=== PATIENT | female | born 1995 | race Caucasian/White ===

== ENCOUNTER 2017-08-17 15:25 | Emergency (ER) | payer BC ==
[~2017-08-17] VITALS: Ht 162.6 cm; Wt 114.7 kg
[2017-08-17 15:29] VITALS: TEMP 36.5; Ht 162.6 cm; Wt 114.7 kg
[2017-08-17] MEDS ORDERED: AZITTAB PO (15:40)
[2017-08-17] MEDS ORDERED: LIDOCAINE 4% W/AFRIN NASAL SOLN 4ML EXT STA (15:52)
[2017-08-17] MEDS ORDERED: MUPIROCIN 2% OINT 22 GM TUBE EXT STA (15:52)
--- NOTE | 2017-08-17 16:06 | EMERGENCY ROOM VISIT NOTE ---
History First contact with patient: 15:36 Chief Complaint: NOSE BLEED (MINOR) Stated Complaint: NOSEBLEED History of Present Illness The patient is a 22 year old female who presents to the Emergency Room with complaints of nosebleeds for the last 2 days. The patient reports being sick with a cold. She has had significant congestion. She also reports having a fever as high as 101F on Monday. She was seen at [facility]. She was started on a Z-Salvador. Her fever has dissipated. She also reports a mild sore throat. She is able to swallow, and is tolerating a diet. The patient notes bleeding from the left naris intermittently over the last 2 days. She denies any history of frequent nosebleeds. She does note that her room seems to be significantly hot and dry. She has a lizard as a pet. She needs to keep the environment hot and dry for the lizard. The patient was seen in [facility] today. Silver nitrate was applied to the left naris. She has not had any bleeding since. Review of Systems 6 system review negative. Please see pertinent positives in the history of present illness section. Past Medical/Surgical History Medical Problems: (1) Bronchitis Family History No reported family medical history Social History Smoking Status: Never Smoker Marital Status: single Housing Status: lives with friends Occupation Status: student Current/Historical Medications Scheduled Azithromycin (Zithromax Z-Salvador), 1 PKT PO UD Physical Exam Vital Signs Date Time Temp Pulse Resp B/P (MAP) Pulse Ox O2 Delivery O2 Flow Rate FiO2 17 15:29 36.5 83 20 149/82 95 Room Air Physical Exam VITALS: Vitals are noted on the nurse's note and reviewed by myself. Vital signs stable. GENERAL: 22-year-old female, in no acute distress, nondiaphoretic, well- developed well-nourished. SKIN: The skin was without rashes, erythema, edema, or bruising. HEAD: Normocephalic atraumatic. EYES: Conjunctivae without injection, sclerae without icterus. Extraocular movements intact. NOSE: Turbinates are inflamed bilaterally. There are 2 small, prominent vessels noted in the right anterior septum. There is an area of superficial , thermal burn consistent with silver nitrate noted to the left anterior septum. No prominent vessels noted. No active bleeding. MOUTH: Mucous membranes moist. Tonsils are not significantly enlarged. Pharynx without erythema or exudate. Uvula midline. Airway patent. Tongue does not deviate. NECK: Supple without nuchal rigidity. Lymphadenopathy noted in the posterior cervical chain bilaterally. Cervical spine is nontender. No JVD. HEART: Regular rate and rhythm without murmurs gallops or rubs. LUNGS: Clear to auscultation bilaterally without wheezes, rales or rhonchi. No accessory muscle use. MUSCULOSKELETAL: No muscle atrophy, erythema, or edema noted. Strength 5/5 throughout. NEURO: Patient was alert and oriented to person place and time. Normal sensation to touch. No focal neurological deficits. Medical Decision & Procedures ED Course The patient was seen and examined She was given Bactroban and Afrin to go Discharge instructions were reviewed, and she was discharged in good condition Medical Decision Differential diagnosis: Sinusitis, epistaxis, hypertension, bronchitis, strep pharyngitis This patient is a 22-year-old female that presents to the emergency department concerned about recurrent nosebleeds for the last few days. Patient is currently being treated for an upper respiratory tract infection. Her symptoms included significant congestion and fever. She has been taking a Z-Salvador with good relief.. She is no longer febrile. The patient was seen at [facility] today where silver nitrate was applied to the left turbinate. She came here for a second opinion. On exam, she does not have any active bleeding. She does have prominent vessels particularly in the right anterior septum. There is an eschar present in the left anterior septum consistent with silver nitrate application. She does not have any active bleeding. The patient was cautioned to not blow her nose and not to disturb the area for at least 24 hours. She will start Bactroban ointment twice daily tomorrow. She was also instructed to apply Afrin and a nasal clip for 30 minutes if she have any recurrent bleeding. For any uncontrolled bleeding, she will return to the emergency department. She was comfortable with this plan, and discharged in good condition. This chart was completed in part utilizing [email or web address] Speech Voice Recognition software. Attempts were made to minimize the grammatical errors, random word insertions, pronoun errors and incomplete sentences. Any formal questions or concerns about the content, text or information contained within the body of this dictation should be directly addressed to the provider for clarification. Medication Reconcilliation Current Medication List: was personally reviewed by me Blood Pressure Screening Patient's blood pressure: Elevated blood pressure Blood pressure disposition: Did not require urgent referral Impression Primary Impression: Epistaxis Departure Information Dispostion Home / Self-Care Condition GOOD Referrals [facility] (PCP) Patient Instructions My [facility] Additional Instructions Please apply Bactroban to the nose on both sides twice daily. Do not start this until tomorrow. If the nosebleeds again, please blow all of the clots out of the nose. Then apply Afrin, 2 sprays to each nostril and apply the nasal clip provided by the emergency department. Keep it in place for a half hour. I would recommend getting a humidifier and trying to keep your room slightly cooler. Continue your antibiotic as prescribed If your symptoms persist, please follow up with an ear nose and throat doctor. A number has been provided. Please return to the emergency department with any worsening symptoms or uncontrolled bleeding.
[2017-08-17 17:10] VITALS: BP 148/99; PULSE 64; O2SAT 99
== END 2017-08-17 17:12 | disposition home or self-care (01) ==
LOC: C.EDB 15:26 → C.EDD 17:12
DX: R04.0 Epistaxis (principal)